=== PATIENT | male | born 1945 | race Caucasian/White ===

== ENCOUNTER 2017-09-03 19:09 | Emergency (ER) | payer OTHER ==
[~2017-09-03] VITALS: Ht 188 cm; Wt 86.2 kg
[2017-09-03 19:09] VITALS: BP_SYST 0
[2017-09-03] MEDS ORDERED: MAGN400T10 PO (21:41)
[2017-09-03] MEDS ORDERED: LISI-209 PO (21:41)
[2017-09-03] MEDS ORDERED: MULT PO (21:41)
[2017-09-03] MEDS ORDERED: INSU3INS9 SQ (21:41)
[2017-09-03] MEDS ORDERED: LATA2.5D6 OP (21:41)
[2017-09-03] MEDS ORDERED: METF750T PO (21:41)
== END 2017-09-03 19:22 | disposition expired ==
LOC: SED 19:09
DX: I46.9 Cardiac arrest, cause unspecified (principal)
CPT/HCPCS: 99285